=== PATIENT | female | born 1965 | race Caucasian/White ===

== ENCOUNTER 2020-07-18 06:08 | Emergency (ER) | payer BC ==
[~2020-07-18] VITALS: Ht 167.7 cm; Wt 88.1 kg
[~2020-07-18 06:08] MED LIST: ASCO100024 PO; ASP325T; ASPI-586 PO; DAPA5TAB PO; DEXA6TAB PO; GING250C PO; METF-865 PO; MULT-1136 PO
--- NOTE | 2020-07-18 06:53 | ED General ---
General Chief Complaint: General Problems/Pain Stated Complaint: LEFT SIDE JAW PAIN,TEJADA,BACK PAIN Source of Information: Patient Exam Limitations: No Limitations History of Present Illness Date Seen by Provider: July 18, 2020 Time Seen by Provider: 06:30 Initial Comments Patient is a 55-year-old female who presents to the emergency department today with a chief complaint of multiple somatic complaints. Over the course of the last several weeks the patient states that she has had episodes where she wakes up and she feels like she is "stopped breathing". She feels like also that her "heart stopped". She states she slept in a chair the rest of the night last night because she was afraid that she might have quit breathing and have had a stroke. Patient states that she has had previous sleep apnea test. She cannot recall how long ago these were however. She complains of intermittent episodes of left jaw pain that are nonexertional. She states that she has had episodes of her left eyelid feeling heavy. She complains of the fingers of both hands feeling tingly. She states that she had a little midthoracic back pain this morning. And also she has had some nausea this morning. Patient states all of her symptoms have completely resolved but she may have a trace of nausea remaining. She has had no recent illnesses such as fevers, chills, abdominal pain. No productive cough. She denies any chest pain. She does not feel short of breath. Patient has a history of diabetes and has been told in the past she has high cholesterol but has been scared to take any statins. She tells me that she has an appointment with her primary care doctor this morning at 845. No history of hypertension. Patient states that she has a sister who has had a heart attack at 69 or 70 years of age. Patient appears to be very apprehensive and anxious. All other review of systems reviewed and negative except as stated above. Timing/Duration: 1-3 Hours Severity: Mild Associated Systoms: Nausea/Vomiting (Nausea without vomiting) Allergies and Home Medications Allergies Coded Allergies: NKANo Known Allergies (Verified Allergy, Unknown, 05/12/08) Home Medications Ascorbic Acid 1,000 Mg Tablet, 1,000 MG PO DAILY, (Reported) Aspirin 81 Mg Tablet.dr, 81 MG PO DAILY, (Reported) Dapagliflozin Propanediol 5 Mg Tablet, 5 MG PO DAILY, (Reported) Dexamethasone 6 Mg Tablet, 6 MG PO DAILY Please take 2 tabs for 2 days then 1 tab for 2 day and then 1/2 tab for 2 days Prescribed by: ROSEMARY CORRIGAN on 09/25/19 1208 Amanda Root 250 Mg Capsule, 250 MG PO DAILY, (Reported) Metformin HCl 500 Mg Tab.er.24h, 1,000 MG PO BID, (Reported) TAKES 2 (500MG) TABS TWICE DAILY Multivitamin 1 Each Tablet, 1 EACH PO DAILY, (Reported) Patient Home Medication List Home Medication List Reviewed: Yes Review of Systems Review of Systems Constitutional: see HPI EENTM: other (Left jaw discomfort) Respiratory: no symptoms reported Cardiovascular: no symptoms reported Gastrointestinal: nausea Genitourinary: no symptoms reported Musculoskeletal: no symptoms reported Skin: no symptoms reported Psychiatric/Neurological: Anxiety, Tingling (Bilateral hands and the fingers) All Other Systems Reviewed Negative Unless Noted: Yes Past Moopobv-[id number]-Mmrtcz Hx Patient Social History Alcohol Use: Denies Use Recent Hopitalizations: No Past Medical History Surgeries: No Gallbladder, Hysterectomy Respiratory: No Cardiac: Yes High Cholesterol Neurological: No Reproductive Disorders: No Sexually Transmitted Disease: No Genitourinary: No Gastrointestinal: No Musculoskeletal: No Endocrine: Yes Diabetes, Non-Insulin dep HEENT: No Cancer: No Psychosocial: No Integumentary: No Blood Disorders: No Physical Exam Vital Signs Capillary Refill : Height, Weight, BMI Height: '" Weight: lbs. oz. kg; 30.83 BMI Method: General Appearance: No Apparent Distress, WD/WN, Anxious Eyes: Bilateral Eye Normal Inspection, Bilateral Eye PERRL, Bilateral Eye EOMI HEENT: PERRL/EOMI, Normal ENT Inspection Neck: Normal Inspection Respiratory: Lungs Clear, Normal Breath Sounds, No Accessory Muscle Use, No Respiratory Distress Cardiovascular: Regular Rate, Rhythm Gastrointestinal: Non Tender, Soft Extremity: Normal Inspection Neurologic/Psychiatric: Alert, Oriented x3, No Motor/Sensory Deficits, Normal Mood/Affect, scutcher tender II-XII Norm as Tested Skin: Normal Color, Warm/Dry Progress/Results/Core Measures Suspected Sepsis SIRS Temperature: Pulse: Respiratory Rate: Blood Pressure / Mean: Results/Orders Vital Signs/I&O Capillary Refill : Progress Note : Time: 06:54 Progress Note Patient seen and examined, 55-year-old female presents to the emergency room w ith multiple somatic complaints all of which seem to have been resolved. Patient has no ongoing complaints of nausea, jaw pain, paresthesias, back pain, headache or eyelid heaviness. Patient states the symptoms have been waxing and waning over the course of the last several weeks. Evaluation today includes a physical examination as well as an EKG. Patient's exam is noncontributory. She has no outward physical findings of TIA/stroke. No concerning findings for acute coronary syndrome. Patient is afebrile. She has normal vital signs. She is not tachycardic. She is not short of breath currently. She is slightly hypertensive at 155/88. Patient states that she takes Metformin for diabetes but no other medications on a daily basis. She has a follow-up appointment with her primary care physician this morning at 845. Patient is encouraged to keep this appointment. She is given good return precautions. She verbalized understanding. All questions are sought and answered. Patient is stable for discharge. ECG Initial ECG Impression Date: July 18, 2020 Initial ECG Impression Time: 06:52 Initial ECG Rate: 80 Initial ECG Rhythm: Normal Sinus Initial ECG Intervals: Normal Initial ECG Intervals CO 144 QRS 80 QTc 425 Initial ECG Impression: Normal Initial ECG Comparisson: Unchanged Departure Impression Primary Impression: Paresthesia Additional Impression: Nausea Disposition: 01 HOME, SELF-CARE Condition: Stable Departure-Patient Inst. Decision time for Depature: 06:53 Referrals: GABBY MICHEL (PCP) Primary Care Physician Patient Instructions: Paresthesia (DC) Add. Discharge Instructions: Please keep your follow-up appointment with your primary care doctor today. Please consider taking any medications recommended by your primary care provider. Come back to the emergency room for any new, emergent or concerning symptoms. BINA ELKINS MD July 18, 2020 06:53
[2020-07-18 07:07] VITALS: BP 110/75
== END 2020-07-18 07:00 | disposition home or self-care (01) ==
LOC: EDUNIT# 06:08 → ER 06:14
DX: R20.2 Paresthesia of skin (principal); R11.0 Nausea; E11.9 Type 2 diabetes mellitus without complications; Z79.84 Long term (current) use of oral hypoglycemic drugs; Z79.82 Long term (current) use of aspirin
CPT/HCPCS: 93005

== ENCOUNTER → 2021-08-29 | Outpatient (CLI) | payer BC ==
[~2021-08-29] MED LIST changes: +CATHETER FLUSH 10 ML SYR IVP PRN
[2021-08-29 09:25] VITALS: BP 129/77
== END ==
LOC: CARD 08:30
PROVIDERS: ATTEND Internal Medicine Cardiovascular Disease
DX: R94.31 Abnormal electrocardiogram [ECG] [EKG] (principal)
CPT/HCPCS: 78452; 93017; A9502

== ENCOUNTER → 2021-08-30 | Outpatient (CLI) | payer BC ==
[~2021-08-30] MED LIST changes: -CATHETER FLUSH 10 ML SYR IVP PRN
--- NOTE | 2021-09-02 12:54 | NUCLEAR STRESS TEST ---
TREADMILL NUCLEAR STRESS TEST Date of procedure: 08/29/2021. Primary care provider: India Steele APRN. Admitting physician: Rico Guidry Jr., MD. INDICATION: Abnormal electrocardiogram. BASELINE ELECTROCARDIOGRAM: Sinus rhythm with low voltage in the precordial leads. STRESS TEST PROCEDURE: The patient was exercised for a total of 3 minutes and 15 seconds of the standard Keshav protocol achieving a maximum MET level of 4.8. The resting heart rate was 81 bpm and the peak heart rate was 157 bpm, which represents 96% of the maximum predicted heart rate. The resting blood pressure was 121/78 mmHg and the peak blood pressure was 161/71 mmHg. This represents a normal heart rate and a normal blood pressure response to exercise. The test was stopped due to fatigue. There was no chest discomfort during the test. There were no arrhythmias during the test. There were no significant stress induced electrocardiogram changes. The patient exhibited fair exercise capacity for age. NUCLEAR PROCEDURE: The patient was administered 10.2 mCi of intravenous technetium 99m Tetrofosmin at rest for the rest images. The patient was subsequently administered 32.8 mCi of intravenous technetium 99 M Tetrofosmin at peak stress for the stress images. Following an appropriate wait after each injection, imaging was obtained. The images were subsequently processed and reformatted in the usual views. Gated imaging was obtained. The image quality was adequate with a mild degree of gastrointestinal attenuation artifact. CT attenuation correction was used as a adjunct to standard imaging. Both the corrected and uncorrected images were reviewed for interpretation. NUCLEAR RESULTS: There was normal myocardial perfusion in all segments without evidence of infarction or ischemia. There was normal left ventricular chamber size with an end-diastolic volume of 31 mL and an end-systolic volume of 8 mL. There was no evidence of transient ischemic dilatation. The TID ratio was 0.86. There was normal wall motion in all segments with a calculated ejection fraction of 73%. IMPRESSION: 1. Normal heart rate and blood pressure response to exercise. 2. There was no chest discomfort, arrhythmias, or electrocardiogram changes during the test. 3. The patient exhibited fair exercise capacity for age at 3 minutes and 15 seconds of the Keshav protocol. 4. There was normal myocardial perfusion in all segments without evidence of infarction or ischemia. 5. There was normal wall motion in all segments with a calculated ejection fraction of 73%. Certain portions of this document may have been dictated utilizing voice recognition technology. Inherent to this technology, typographical and grammatical errors may exist. As much as I am diligent to identify and correct these mistakes, some errors may remain in the document. RICO GUIDRY JR, MD Sep 02, 2021 12:54
== END ==
LOC: CARD 13:00
PROVIDERS: ATTEND Internal Medicine Cardiovascular Disease
DX: I35.0 Nonrheumatic aortic (valve) stenosis (principal); I51.7 Cardiomegaly; R94.31 Abnormal electrocardiogram [ECG] [EKG]
CPT/HCPCS: 93306

== ENCOUNTER 2022-02-06 20:26 | Outpatient (CLI) | payer BC | END 2022-02-07 04:58 | disposition home or self-care (01) | LOC: SLEEP 20:26 | PROVIDERS: ATTEND Nurse Practitioner Family | DX: G47.33 Obstructive sleep apnea (adult) (pediatric) (principal); R06.83 Snoring; G47.36 Sleep related hypoventilation in conditions classified elsewhere | CPT/HCPCS: 95810 ==